=== PATIENT | male | born 1965 | race American Indian/Alaskan Native ===

== ENCOUNTER 2018-12-26 15:13 | Outpatient (CLI) | payer BC ==
--- NOTE | 2018-12-26 22:35 | XRay Report ---
PROCEDURE: XR FINGER(S) 2+V LT TECHNIQUE: 3 views obtained of the left fourth digit HISTORY: PAIN IN LEFT FINGER(S) COMPARISONS: No priors FINDINGS: No acute fracture or dislocation. No erosive or lytic bony changes. IMPRESSION: . Normal radiographic appearance of the left fourth digit. This document is electronically signed by Vijay Knutson MD., December 26 2018 10:33:44 PM ET
== END 2018-12-26 15:14 | disposition home or self-care (01) ==
LOC: XRAY 15:13
PROVIDERS: ATTEND Internal Medicine
DX: M79.645 Pain in left finger(s) (principal); I10 Essential (primary) hypertension

== ENCOUNTER 2022-02-24 11:09 | Day surgery (SDC) | payer BC ==
[~2022-02-24 11:09] MED LIST: LACTATED RINGERS 1,000 ML IV SCH; MIDAZOLAM 2 MG/2 ML INJ IV NR
[2022-02-24] MEDS ORDERED: HYDROcodone/ACETAMINOPHEN 5-325 MG TAB PO PRN (12:00)
[2022-02-24] MEDS ORDERED: ceFAZolin/STERILE WATER 2 GM/20 ML SYRINGE IV SCH (12:17)
[2022-02-24] MEDS ORDERED: FAMOTIDINE 20 MG/2 ML INJ IV ONE ×2 (12:27→12:28)
--- NOTE | 2022-02-24 12:28 | Anesthesia Day of Surgery ---
Anesthesia Day of Surgery - Day of Surgery Patient Examined: Yes Patient H&P Reviewed: Yes Patient is NPO: Yes
--- NOTE | 2022-02-24 12:28 | Anesthesia Consultation ---
Anesthesia Consult and Med Hx - Airway Anesthetic Teeth Evaluation: Good ROM Head & Neck: Adequate Mental/Hyoid Distance: Adequate Mallampati Class: Class II Intubation Access Assessment: Probably Good - Pre-Operative Health Status ASA Pre-Surgery Classification: ASA2 Proposed Anesthetic Plan: General - Pulmonary Hx Smoking: No - Cardiovascular System Hx Hypertension: Yes Hx Coronary Artery Disease: No (high cholesterol) - Other Systems Hx Obesity: Yes (BMI 30.7)
[2022-02-24] MEDS ORDERED: LIDOCAINE MPF (2%) 20 MG/1 ML VIAL 5 ML ONE (12:39)
[2022-02-24] MEDS ORDERED: propofoL 200 MG/20 ML VIAL IV ONE (12:40)
[2022-02-24] MEDS ORDERED: fentaNYL 100 MCG/2 ML INJ ONE (12:40)
[2022-02-24] MEDS ORDERED: ceFAZolin/Water 2 GM/20 ML 2 GM/20 ML SYRINGE IV ONE (12:44)
[2022-02-24] MEDS ORDERED: ePHEDrine SULFATE 50 MG/1 ML INJ ONE (13:20)
[2022-02-24] MEDS ORDERED: KETOROLAC 30 MG/1 ML INJ ONE (14:00)
[2022-02-24] MEDS ORDERED: ONDANSETRON 4 MG/2 ML INJ ONE (14:00)
--- NOTE | 2022-02-24 14:01 | Post Operative Note ---
Date of procedure: 02/24/22 Pre-op diagnosis: elective sterilization Post-op diagnosis: same Findings: tiny vas rt hydrocele Procedure: r hydrocelectomy vasectomy Anesthesia: GETA Surgeon: TARAH SPARKS Estimated blood loss: none Pathology: list (vas) Condition: stable Disposition: PACU
--- NOTE | 2022-02-24 14:02 | Discharge Summary ---
Short Stay Discharge Plan Activity: other (no straining ) Weight Bearing Status: Full Weight Bearing Diet: low fat, low cholesterol, low salt Wound: open to air Special Instructions: other (ice in rr and x 24 hrs) Follow up with: MICHAEL STILL MD [Primary Care Provider] - 7 Days TARAH SPARKS MD [Staff Physician] - 14 Days
[2022-02-24] MEDS ORDERED: dexAMETHasone 20 MG/5 ML VIAL ONE (14:18)
[2022-02-24] MEDS ORDERED: SODIUM CHLORIDE 0.9% IRR 1,500 ML BOTTLE IR ONE (14:19)
[2022-02-24 15:57] VITALS: BP 130/80
--- NOTE | 2022-02-24 16:17 | Post Anesthesia Evaluation ---
- Post Anesthesia Evaluation Patient Participated: Yes Airway Patent: Yes Stable Respiratory Function: Yes Nausea/Vomiting: No Temp > 96.8F: Yes Pain Manageable: Yes Adequeate Hydration: Yes Anesthesia Complications: No
--- NOTE | 2022-02-24 18:41 | Operative Report ---
DATE OF SURGERY: 02/24/2022 PREOPERATIVE DIAGNOSES: Elective sterilization, very difficult to palpate the right vas. POSTOPERATIVE DIAGNOSES: Elective sterilization, very difficult to palpate the right vas, right hydrocele. PROCEDURES: Right scrotal exploration and bilateral partial vasectomy. SURGEON: Ramon Bauer MD ANESTHESIA: General. FINDINGS: This is a gentleman with very tiny vas, previous varicocele and very difficult palpable vas, especially on the right side. He now presents for treatment under anesthesia. DESCRIPTION OF PROCEDURE: The patient was brought to the operating room and placed on the operating table. Following induction of anesthesia, we re-examined him multiple times to see if we could just do it without exposing any of the testes, but the right side was very difficult to feel. We made a small incision over the tunica, opened it, the testis was visible with approximately 20 mL of fluid. Once the fluid was evacuated, we felt the vas, which was very, very tiny as well. We dissected this free, doubly tied it, cauterized it and oversewn it. On the left side, it was also very tiny, but we did not have to expose the testis. It was delivered without delivering the testis and again very tiny. Both sides were surrounded by some fatty tissue along the cord, which made it quite difficult. The patient tolerated the procedure well. We dissected it free, especially on the left side. We did not want to take the vas as he has had previous varicocelectomy. He tolerated the procedure well, no significant bleeding, brought to recovery room in stable condition. TID: [id number] RECEIPT: [id number] QUINTON/TAN/[place]
== END 2022-02-24 15:15 | disposition home or self-care (01) ==
LOC: OR 11:09
PROVIDERS: ATTEND Urology
DX: Z30.2 Encounter for sterilization (principal); N43.2 Other hydrocele; I10 Essential (primary) hypertension; E66.9 Obesity, unspecified; Z79.899 Other long term (current) drug therapy; Z79.82 Long term (current) use of aspirin; Z68.30 Body mass index [BMI] 30.0-30.9, adult; Z86.2 Personal history of diseases of the blood and blood-forming organs and certain disorders involving the immune mechanism
CPT/HCPCS: 55110; 55250; 88302; J0690; J1100; J1885; J2250; J2405; J2704; J3010; J3490; J7120